=== PATIENT | female | born 1980 | race Caucasian/White ===

== ENCOUNTER → 2016-12-25 | Outpatient (CLI) | payer BC ==
--- NOTE | 2016-12-26 09:28 | MR ---
EXAMINATION: MRI of the right knee HISTORY: Pain COMPARISON: Radiographs dated 04/04/2016 TECHNIQUE: Multiplanar and multisequence images obtained of the right knee without contrast. FINDINGS: The patellar and quadriceps tendons appear intact. The ACL and the PCL appear normal. The medial and lateral menisci are normal. The medial and lateral collateral ligament complexes appear intact. There is edema within the superior lateral aspect of Hoffa's fat pad. Moderate to severe art icular cartilage thinning is noted along the inferolateral aspect of the patella and moderately with in the remaining patellofemoral compartment. Subchondral edema and cystic changes also noted within the patellofemoral compartment. The articular surfaces otherwise appear preserved. There is a trace joint fluid and a small Cortes's cyst. IMPRESSION: 1. Moderate chondromalacia patellae. 2. 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
== END ==
LOC: MW.MRI 15:40
PROVIDERS: ATTEND Physician Assistant
DX: M22.41 Chondromalacia patellae, right knee (principal)
CPT/HCPCS: 73721-26-RT; 73721-RT

== ENCOUNTER 2017-02-21 06:30 | Day surgery (SDC) | payer BC ==
[2017-02-20 16:01] LABS: CHLORIDE,CL 108 mmol/L (98-110); SODIUM,NA 140 mmol/L (136-146)
[~2017-02-21 06:30] MED LIST: Lactated Ringers 1,000 ML IV SCH; Sodium Chloride 0.9% 10 ML Syringe FLUSH PRN; Sodium Chloride 0.9% 2.5 ML Syringe FLUSH PRN; ceFAZolin 2 GM in Premix Bag 1 BAG IV ONE
--- NOTE | 2017-02-21 07:08 | PCM.PREANE ---
Preanesthetic Assessment - Anesthesia/Transfusion/Family Hx Anesthesia History: Prior Anesthesia Without Reaction Other Type of Anesthesia Reaction Comment: Denies any known problems in the past , no known family history of problems Family History of Anesthesia Reaction: No Transfusion History: No Prior Transfusion(s) Intubation History: Unknown - Review of Systems General: No Symptoms Pulmonary: No Symptoms Cardiovascular: No Symptoms Gastrointestinal: No symptoms Neurological: No Symptoms Other: Reports: None - Physical Assessment Height: 1.68 m Weight: 102.512 kg ASA Class: 2 Mental Status: Alert & Oriented x3 Airway Class: Mallampati = 2 Dentition: Reports: Normal Dentition Thyro-Mental Finger Breadths: 3 Mouth Opening Finger Breadths: 3 ROM/Head Extension: Full Lungs: Clear to auscultation, Normal respiratory effort Cardiovascular: Regular Rate, Regular Rhythm - Lab Values: Laboratory Last Values WBC 9.33 K/uL (4.0-11.0) 02/20/17 15:34 RBC 4.19 M/uL (4.30-5.90) L 02/20/17 15:34 Hgb 12.1 g/dL (12.0-16.0) 02/20/17 15:34 Hct 36.8 % (36.0-46.0) 02/20/17 15:34 MCV 87.8 fL (80.0-98.0) 02/20/17 15:34 MCH 28.9 pg (27.0-32.0) 02/20/17 15:34 MCHC 32.9 g/dL (31.0-37.0) 02/20/17 15:34 RDW Std Deviation 48.9 fl (28.0-62.0) 02/20/17 15:34 RDW Coeff of Dilia 15 % (11.0-15.0) 02/20/17 15:34 Plt Count 247 K/uL (150-400) 02/20/17 15:34 MPV 9.90 fL (7.40-12.00) 02/20/17 15:34 Nucleated RBC % 0.0 /100WBC 02/20/17 15:34 Nucleated RBCs # 0 K/uL 02/20/17 15:34 Sodium 140 mmol/L (136-146) 02/20/17 15:34 Potassium 4.2 mmol/L (3.5-5.1) 02/20/17 15:34 Chloride 108 mmol/L (98-110) 02/20/17 15:34 Carbon Dioxide 21 mmol/L (21-31) 02/20/17 15:34 BUN 11 mg/dL (6.0-23.0) 02/20/17 15:34 Creatinine 0.8 mg/dL (0.6-1.5) 02/20/17 15:34 Est Cr Clr Drug Dosing 89.26 mL/min 02/20/17 15:34 Estimated GFR (MDRD) > 60.0 ml/min 02/20/17 15:34 Glucose 80 mg/dL (60-110) 02/20/17 15:34 Calcium 8.7 mg/dL (8.8-10.8) L 02/20/17 15:34 HCG, Qual NEGATIVE (NEG) 02/20/17 15:34 Blood Type AB POSITIVE 02/20/17 15:34 Antibody Screen NEGATIVE 02/20/17 15:34 - Allergies Allergies/Adverse Reactions: Allergies Allergy/AdvReac Type Severity Reaction Status Date / Time No Known Allergies Allergy Verified 01/06/16 16:00 - Blood Blood Available: No - Anesthesia Plan Pre-Op Medication Ordered: None - Acknowledgements Anesthesia Type Planned: General Anesthesia Pt an Appropriate Candidate for the Planned Anesthesia: Yes Alternatives and Risks of Anesthesia Discussed w Pt/Guardian: Yes Pt/Guardian Understands and Agrees with Anesthesia Plan: Yes PreAnesthesia Questionnaire Cardiovascular History: Reports: Other (See Below) Other Cardiovascular History: murmur in the past Gastrointestinal History: Reports: GERD Genitourinary History: Reports: None CUSHION SEWER History: Reports: Dysfunctional Uterine Bleeding, Musculoskeletal History: Reports: None Psychiatric History: Reports: Anxiety, Depression Endocrine/Metabolic History: Reports: Obesity/BMI 30+ - Past Surgical History Head Surgeries/Procedures: Reports: None GI Surgical History: Reports: Cholecystectomy Female Surgical History: Reports: Other (See Below) Other Female Surgeries/Procedures: hx hysteroscopy and diagnostic laparoscopy Musculoskeletal Surgical History: Reports: Other (See Below) Other Musculoskeletal Surgeries/Procedures:: hx ganglion cyst removed from lt foot - SUBSTANCE USE Smoking Status *Q: Current Every Day Smoker (< 1ppd) Tobacco Use Within Last Twelve Months: Cigarettes Recreational Drug Use History: No - HOME MEDS Home Medications: Home Meds Citalopram [Citalopram HBr] 10 mg PO DAILY 09/07/14 [History] LORazepam [Ativan] 1 tab PO ASDIRECTED PRN 02/18/17 [History] Omeprazole 20 mg PO DAILY 02/18/17 [History] - CURRENT (IN HOUSE) MEDS Current Meds: Current Medications Lactated Ringer's (Ringers, Lactated) 1,000 mls @ 125 mls/hr IV ASDIRECTED MARQUIS Last Admin: 02/21/17 06:55 Dose: 125 mls/hr Sodium Chloride (Saline Flush) 10 ml FLUSH ASDIRECTED PRN PRN Reason: Keep Vein Open Sodium Chloride (Saline Flush) 2.5 ml FLUSH ASDIRECTED PRN PRN Reason: Keep Vein Open Discontinued Medications Cefazolin Sodium/Dextrose 2 gm (/ Premix) 50 mls @ 100 mls/hr IV ONETIME ONE Stop: 02/20/17 15:41
[2017-02-21] MEDS ORDERED: Rocuronium 10 MG/ML 10 ML Syringe ONE (07:16)
[2017-02-21] MEDS ORDERED: Midazolam 1 MG/ML 2 ML SDV ONE (07:16)
[2017-02-21] MEDS ORDERED: fentaNYL 250 MCG/5 ML SDV ONE (07:16)
[2017-02-21] MEDS ORDERED: HYDROmorphone 2 MG/ML Syringe ONE (07:16)
[2017-02-21] MEDS ORDERED: Ondansetron 4 MG/2 ML SDV ONE (07:16)
[2017-02-21] MEDS ORDERED: Dexamethasone 4 MG/ML 5 ML MDV ONE (07:16)
[2017-02-21] MEDS ORDERED: Propofol 200 MG/20 ML SDV ONE (07:16)
[2017-02-21] MEDS ORDERED: Fluorescein 5 ML Vial ONE (07:16)
[2017-02-21] MEDS ORDERED: Lidocaine 2% 5 ML SDV ONE (07:19)
[2017-02-21] MEDS ORDERED: Furosemide 40 MG/4 ML VIAL ONE (08:22)
[2017-02-21] MEDS ORDERED: fentaNYL 100 MCG/2 ML SDV ONE (08:54)
[2017-02-21] MEDS ORDERED: Mineral Oil/Petrolatum Ophth Oint 3.5 GM Tube ONE (09:06)
[2017-02-21] MEDS ORDERED: Ondansetron 4 MG/2 ML SDV IVPUSH PRN (09:11)
[2017-02-21] MEDS ORDERED: Promethazine 25 MG/ML SDV IM PRN (09:11)
[2017-02-21] MEDS ORDERED: Morphine 4 MG/ML Syringe IVPUSH PRN (09:11)
[2017-02-21] MEDS ORDERED: Ketorolac 30 MG/ML SDV IVPUSH PRN (09:11)
[2017-02-21] MEDS ORDERED: Acetaminophen/oxyCODONE 325-5 MG Tab PO PRN (09:11)
[2017-02-21] MEDS ORDERED: Ketorolac 30 MG/ML SDV IVPUSH ONE (09:11)
--- NOTE | 2017-02-21 09:16 | PCM.OPNOTE ---
- General Post-Op/Procedure Note Date of Surgery/Procedure: 02/21/17 Operative Procedure(s): TVH, Bilatral Salpengectomy and cystoscopy Pre Op Diagnosis: Vaginal bleeding Post-Op Diagnosis: Same Anesthesia Technique: General ET tube Primary Surgeon: Saurav Matos Storekeeper Steward: Rama Taylor EBL in mLs: 100 Complications: None Condition: Good Free Text/Narrative:: Intake & Output 02/20/17 02/21/17 02/21/17 22:59 06:59 14:59 Output Total 30 Balance -30
[2017-02-21] MEDS ORDERED: Promethazine 12.5 MG Supp RECTAL PRN (09:53)
[2017-02-21] MEDS ORDERED: fentaNYL 100 MCG/2 ML SDV IVPUSH PRN (09:53)
--- NOTE | 2017-02-21 10:01 | PCM.POSTAN ---
POST ANESTHESIA ASSESSMENT - MENTAL STATUS Mental Status: alert, oriented - RESPIRATORY Respiratory Status: respiratory rate WNL, airway patent, O2 saturation stable - CARDIOVASCULAR CV Status: pulse rate WNL, blood pressure stable - GASTROINTESTINAL GI Status: no symptoms - PAIN Pain Score: 5 - POST OP HYDRATION Hydration Status: adequate & stable - OBSERVATIONS Free Text/Narrative:: no anesthesia problems
[2017-02-21] MEDS: Acetaminophen/oxyCODONE 325-5 MG Tab PO PRN ×3 (10:25→22:15)
[2017-02-21] MEDS: Morphine 2 MG/ML Syringe IVPUSH PRN ×3 (11:13→18:49)
--- NOTE | 2017-02-21 13:16 | OR ---
SURGEON: Saurav Matos MD DATE OF PROCEDURE: PREOPERATIVE DIAGNOSIS: Menometrorrhagia. POSTOPERATIVE DIAGNOSIS: Menometrorrhagia. OPERATION PERFORMED: Total vaginal hysterectomy, vaginal bilateral salpingectomy preserving both ovaries and cystoscopy. RETAIL VISUAL MERCHANDISER: RYAN Kirby ANESTHESIA: General endotracheal intubation, Alexandra Lawrence and Dr. Lambert. ESTIMATED BLOOD LOSS: 100 mL. COMPLICATIONS: None. FINDINGS: Uterus about 8-9 weeks. Both ovaries are essentially normal. INDICATIONS FOR SURGERY: Marion refer to the admit note. PROCEDURE IN DETAIL: The patient was brought to the OR, properly identified, and after adequate level of general anesthesia, the patient was placed in lithotomy position. Prepped and draped in sterile fashion as usual. Straight catheter was used to empty the bladder and a short weighted speculum was placed in the vagina. Single-tooth tenaculum was applied to the cervix and using electrocautery, circular incision in the vaginal mucosa was done and the posterior cul-de-sac was entered posteriorly using Mayes scissors. The perineum and the vagina tagged posteriorly with 2-0 Vicryl and held it for further identification. A short weighted speculum replaced with an extending long weighted speculum. The uterosacral ligament was identified from both sides, clamped with a curved Zeppelin, transected, and suture ligated with 2-0 Vicryl pop-off and held for further identification. The same thing was done with the cardinal ligament. Then, using Metzenbaum scissors, the cervicovesical space was entered anteriorly and the bladder retracted completely away from the operative field. The anterior cul-de-sac was entered anteriorly and broad ligament was clamped with a curved Zeppelin, transected, and suture ligated with 2-0 Vicryl pop-off. The uterine vessel suture ligated at this time. Multiple bites taken in the broad ligament on both sides. We shortened the superior pedicles and one of those bites suture ligated the round ligament. Then, the uterus delivered posteriorly and the superior pedicle clamped with a 90-degree Zeppelin on both sides and transected and uterus was removed. The superior pedicle tied two times with 2-0 free tie on both sides and then attention was paid to the tubes and using the Harmonic scapula, the salpingectomy was performed by using the Harmonic coagulating the mesosalpinx. Inspection of the operative field showed at this time no oozing and no bleeding. The uterosacral ligament anchored to the vagina at 3 and 9 o'clock for added vaginal support and then the vaginal cuff was closed with 2-0 Vicryl interrupted [id number] sutures. While we were doing that, we asked the anesthesia people to give the patient fluorescein and after closing the vaginal cuff, cystoscopy was performed. The bladder was intact. Both ureteric orifices were seen with the dye coming from both of them. Thus, the patency of both ureters verified. Satisfied with these findings, instrument and hardware were retrieved from the abdomen and vagina and instrument and sponge count was correct x2. The procedure was ended at this time. The patient tolerated the procedure well, went to recovery room in stable general condition. CARMELITA / SOHAN /[id number]
[2017-02-21] MEDS: Nicotine 21 MG/24 Hr Patch TRDERM SCH (15:38)
[2017-02-22] MEDS: Acetaminophen/oxyCODONE 325-5 MG Tab PO PRN ×2 (03:37→09:18)
[2017-02-22 04:48] LABS: CHLORIDE,CL 108 mmol/L (98-110); SODIUM,NA 140 mmol/L (136-146)
[2017-02-22 07:45] VITALS: BP 117/67
[2017-02-22] MEDS: Nicotine 21 MG/24 Hr Patch TRDERM SCH (08:51)
--- NOTE | 2017-02-22 09:18 | PCM.SURGPN ---
- General Info Date of Service: 02/22/17 POD#: 1 Functional Status: Reports: pain controlled - Review of Systems General: Reports: No Symptoms HEENT: Reports: no symptoms Pulmonary: Reports: no symptoms Cardiovascular: Reports: No Symptoms Gastrointestinal: Reports: No symptoms Genitourinary: Reports: no symptoms Musculoskeletal: Reports: no symptoms Skin: Reports: no symptoms Neurological: Reports: No Symptoms Psychiatric: Reports: no symptoms - Patient Data Vitals - most recent: Last Vital Signs Temp 36.4 C 02/22/17 07:43 Pulse 60 02/22/17 07:43 Resp 16 02/22/17 07:43 BP 117/67 02/22/17 07:43 Pulse Ox 95 02/22/17 07:43 Weight - most recent: 102 kg I&O - last 24 hours: Intake & Output 02/21/17 02/22/17 02/22/17 22:59 06:59 14:59 Intake Total 2245 2400 Output Total 770 4150 Balance 1475 -1750 Lab Results last 24 hrs: Laboratory Results - last 24 hr 02/22/17 02/22/17 Range/Units 03:53 03:53 WBC 15.02 H (4.0-11.0) K/uL RBC 3.63 L (4.30-5.90) M/uL Hgb 10.5 L (12.0-16.0) g/dL Hct 32.3 L (36.0-46.0) % MCV 89.0 (80.0-98.0) fL MCH 28.9 (27.0-32.0) pg MCHC 32.5 (31.0-37.0) g/dL RDW Std Deviation 49.2 (28.0-62.0) fl RDW Coeff of Dilia 15 (11.0-15.0) % Plt Count 255 (150-400) K/uL MPV 10.40 (7.40-12.00) fL Neut % (Auto) 79.0 (48.0-80.0) % Lymph % (Auto) 11.7 L (16.0-40.0) % Winn % (Auto) 9.1 (0.0-15.0) % Eos % (Auto) 0.1 (0.0-7.0) % Baso % (Auto) 0.1 (0.0-1.5) % Neut # (Auto) 11.9 H (1.4-5.7) K/uL Lymph # (Auto) 1.8 (0.6-2.4) K/uL Winn # (Auto) 1.4 H (0.0-0.8) K/uL Eos # (Auto) 0.0 (0.0-0.7) K/uL Baso # (Auto) 0.0 (0.0-0.1) K/uL Nucleated RBC % 0.0 /100WBC Nucleated RBCs # 0 K/uL Sodium 140 (136-146) mmol/L Potassium 4.3 (3.5-5.1) mmol/L Chloride 108 (98-110) mmol/L Carbon Dioxide 21 (21-31) mmol/L BUN 9 (6.0-23.0) mg/dL Creatinine 0.8 (0.6-1.5) mg/dL Est Cr Clr Drug Dosing 89.75 mL/min Estimated GFR (MDRD) > 60.0 ml/min Glucose 124 H (60-110) mg/dL Calcium 8.6 L (8.8-10.8) mg/dL Med Orders - Current: Current Medications Fentanyl (Sublimaze) 50 mcg IVPUSH SEECOMMENT PRN PRN Reason: Pain (moderate 4-6) Ketorolac Tromethamine (Toradol) 30 mg IVPUSH Q6H PRN PRN Reason: Pain (severe 7-10) Stop: 02/26/17 09:11 Last Admin: 02/21/17 15:43 Dose: 30 mg Morphine Sulfate (Morphine) 2 mg IVPUSH Q2H PRN PRN Reason: Pain (severe 7-10) Last Admin: 02/21/17 18:49 Dose: 2 mg Morphine Sulfate (Morphine) 4 mg IVPUSH Q2H PRN PRN Reason: Pain (severe 7-10) Last Admin: 02/21/17 14:21 Dose: 4 mg Nicotine (Habitrol) 21 mg TRDERM DAILY MARQUIS Last Admin: 02/22/17 08:51 Dose: Not Given Ondansetron HCl (Zofran) 4 mg IVPUSH Q6H PRN PRN Reason: Nausea/Vomiting Oxycodone/Acetaminophen (Percocet 325-5 Mg) 1 tab PO Q4H PRN PRN Reason: Pain (moderate 4-6) Oxycodone/Acetaminophen (Percocet 325-5 Mg) 2 tab PO Q4H PRN PRN Reason: Pain (moderate 4-6) Last Admin: 02/22/17 03:37 Dose: 2 tab Promethazine HCl (Phenergan) 25 mg IM Q6H PRN PRN Reason: Nausea/Vomiting Promethazine HCl (Phenadoz) 12.5 - 25 mg RECTAL ASDIRECTED PRN PRN Reason: Nausea/Vomiting Sodium Chloride (Saline Flush) 10 ml FLUSH ASDIRECTED PRN PRN Reason: Keep Vein Open Sodium Chloride (Saline Flush) 2.5 ml FLUSH ASDIRECTED PRN PRN Reason: Keep Vein Open Discontinued Medications Dexamethasone (Dexamethasone) Confirm Administered Dose 20 mg .ROUTE .STK-MED ONE Stop: 02/21/17 07:17 Fentanyl (Sublimaze) Confirm Administered Dose 250 mcg .ROUTE .STK-MED ONE Stop: 02/21/17 07:17 Fentanyl (Sublimaze) Confirm Administered Dose 100 mcg .ROUTE .STK-MED ONE Stop: 02/21/17 08:55 Fluorescein Sodium (Ak-Fluor) Confirm Administered Dose 5 ml .ROUTE .STK-MED ONE Stop: 02/21/17 07:17 Furosemide (Lasix) Confirm Administered Dose 40 mg .ROUTE .STK-MED ONE Stop: 02/21/17 08:23 Glycopyrrolate () Confirm Administered Dose 1 mg .ROUTE .STK-MED ONE Stop: 02/21/17 08:56 Hydromorphone HCl (Dilaudid) Confirm Administered Dose 2 mg .ROUTE .STK-MED ONE Stop: 02/21/17 07:17 Lactated Ringer's (Ringers, Lactated) 1,000 mls @ 125 mls/hr IV ASDIRECTED MARQUIS Last Admin: 02/21/17 06:55 Dose: 125 mls/hr Cefazolin Sodium/Dextrose 2 gm (/ Premix) 50 mls @ 100 mls/hr IV ONETIME ONE Stop: 02/20/17 15:41 Last Admin: 02/21/17 11:17 Dose: Not Given Ketorolac Tromethamine (Toradol) 30 mg IVPUSH ONETIME ONE Stop: 02/21/17 09:12 Last Admin: 02/21/17 11:17 Dose: Not Given Lidocaine (Xylocaine-Mpf 2%) Confirm Administered Dose 5 ml .ROUTE .STK-MED ONE Stop: 02/21/17 07:20 Midazolam HCl (Versed 1 Mg/Ml) Confirm Administered Dose 2 mg .ROUTE .STK-MED ONE Stop: 02/21/17 07:17 Mineral Oil/White Petrolatum (Lacri-Lube S.O.P Oint) Confirm Administered Dose 3.5 gm .ROUTE .STK-MED ONE Stop: 02/21/17 09:07 Ondansetron HCl (Zofran) Confirm Administered Dose 4 mg .ROUTE .STK-MED ONE Stop: 02/21/17 07:17 Propofol (Diprivan 20 Ml) Confirm Administered Dose 200 mg .ROUTE .STK-MED ONE Stop: 02/21/17 07:17 Rocuronium [place] (Zemuron) Confirm Administered Dose 100 mg .ROUTE .STK-MED ONE Stop: 02/21/17 07:17 - Exam Wound/Incisions: healing well General: alert, oriented HEENT: Pupils equal Neck: supple Lungs: Clear to auscultation, Normal respiratory effort Cardiovascular: Regular Rate, Regular Rhythm Abdomen: bowel sounds present, soft, no tenderness, no distension Extremities: no edema Skin: warm, dry, intact Neurological: no new focal deficit Psy/Mental Status: alert, normal affect, normal mood - Problem List Review Problem List Initiated/Reviewed/Updated: Yes - My Orders Last 24 Hours: Active Orders 24 hr Category Date Time Status Patient Status [ADT] Routine ADT 02/21/17 09:11 Active Antiembolic Devices [RC] PER UNIT ROUTINE Care 02/21/17 09:12 Active Notify Provider Vital Signs [RC] ASDIRECTED Care 02/21/17 09:11 Active RT Incentive Spirometry [RC] Q2HWA Care 02/21/17 09:11 Active Up With Assistance [RC] PER UNIT ROUTINE Care 02/21/17 09:11 Active Up ad Brianna [RC] PER UNIT ROUTINE Care 02/21/17 09:11 Active Urinary Catheter Removal [RC] Per Unit Routine Care 02/21/17 09:11 Active Vital Signs [RC] PER UNIT ROUTINE Care 02/21/17 09:11 Active Regular Diet [DIET] Diet 02/21/17 Lunch Active Acetaminophen/oxyCODONE [Percocet 325-5 MG] Med 02/21/17 09:11 Active 1 tab PO Q4H PRN Acetaminophen/oxyCODONE [Percocet 325-5 MG] Med 02/21/17 09:11 Active 2 tab PO Q4H PRN Ketorolac [Toradol] Med 02/21/17 09:11 Active 30 mg IVPUSH Q6H PRN Morphine Med 02/21/17 09:11 Active 2 mg IVPUSH Q2H PRN Morphine Med 02/21/17 09:11 Active 4 mg IVPUSH Q2H PRN Nicotine [Habitrol] Med 02/21/17 15:15 Active 21 mg TRDERM DAILY Ondansetron [Zofran] Med 02/21/17 09:11 Active 4 mg IVPUSH Q6H PRN Promethazine [Phenadoz] Med 02/21/17 09:53 Active 12.5 - 25 mg RECTAL ASDIRECTED PRN Promethazine [Phenergan] Med 02/21/17 09:11 Active 25 mg IM Q6H PRN fentaNYL [Sublimaze] Med 02/21/17 09:53 Active 50 mcg IVPUSH SEECOMMENT PRN Peripheral IV Discontinue [OM.PC] Routine Oth 02/21/17 09:11 Ordered Sequential Compression Device [OM.PC] Per Unit Routine Oth 02/21/17 09:11 Ordered Resuscitation Status Routine Resus Stat 02/21/17 09:11 Ordered Medication Orders Fentanyl (Sublimaze) 50 mcg IVPUSH SEECOMMENT PRN PRN Reason: Pain (moderate 4-6) Ketorolac Tromethamine (Toradol) 30 mg IVPUSH Q6H PRN PRN Reason: Pain (severe 7-10) Stop: 02/26/17 09:11 Last Admin: 02/21/17 15:43 Dose: 30 mg Morphine Sulfate (Morphine) 2 mg IVPUSH Q2H PRN PRN Reason: Pain (severe 7-10) Last Admin: 02/21/17 18:49 Dose: 2 mg Admin: 02/21/17 12:12 Dose: 2 mg Admin: 02/21/17 11:13 Dose: 2 mg Morphine Sulfate (Morphine) 4 mg IVPUSH Q2H PRN PRN Reason: Pain (severe 7-10) Last Admin: 02/21/17 14:21 Dose: 4 mg Nicotine (Habitrol) 21 mg TRDERM DAILY MARQUIS Last Admin: 02/22/17 08:51 Dose: Not Given Admin: 02/21/17 15:38 Dose: 21 mg Ondansetron HCl (Zofran) 4 mg IVPUSH Q6H PRN PRN Reason: Nausea/Vomiting Oxycodone/Acetaminophen (Percocet 325-5 Mg) 1 tab PO Q4H PRN PRN Reason: Pain (moderate 4-6) Oxycodone/Acetaminophen (Percocet 325-5 Mg) 2 tab PO Q4H PRN PRN Reason: Pain (moderate 4-6) Last Admin: 02/22/17 03:37 Dose: 2 tab Admin: 02/21/17 22:15 Dose: 2 tab Admin: 02/21/17 16:40 Dose: 2 tab Admin: 02/21/17 10:25 Dose: 2 tab Promethazine HCl (Phenergan) 25 mg IM Q6H PRN PRN Reason: Nausea/Vomiting Promethazine HCl (Phenadoz) 12.5 - 25 mg RECTAL ASDIRECTED PRN PRN Reason: Nausea/Vomiting Sodium Chloride (Saline Flush) 10 ml FLUSH ASDIRECTED PRN PRN Reason: Keep Vein Open Sodium Chloride (Saline Flush) 2.5 ml FLUSH ASDIRECTED PRN PRN Reason: Keep Vein Open - Assessment Assessment (Free Text/Narrative):: Status post total vaginal hysterectomy postoperative day #1 patient is doing well on regular diet no vaginal bleeding her lab work is normal she is afebrile. - Plan Plan (Free Text/Narrative):: Patient would be sent home today post hysterectomy instruction is given to the patient prescription for Percocet 7.5/325 start every 4 hours and when necessary for pain is given to the patient she is to have an appointment to the office one week the day of her discharge for postoperative check
--- NOTE | 2017-02-22 09:19 | PCM.DCSUM1 ---
Discharge Summary - Discharge Data Discharge Date: 02/22/17 Discharge Disposition: Home, Self-Care 01 Condition: Good - Patient Summary/Data Operative Procedure(s) Performed: TV[facility], Bilatral Salpengectomy and cystoscopy - Patient Instructions Diet: Usual Diet as Tolerated Driving: Do Not Drive Showering/Bathing: January Shower Notify Provider of: Fever, Increased Pain - Discharge Plan Home Medications: Home Meds Citalopram [Citalopram HBr] 10 mg PO DAILY 09/07/14 [History] LORazepam [Ativan] 1 tab PO ASDIRECTED PRN 02/18/17 [History] Omeprazole 20 mg PO DAILY 02/18/17 [History] Referrals: Saurav Matos MD [Physician] - 03/01/17 9:30 am - General Info Date of Service: 02/22/17 Functional Status: Reports: pain controlled - Review of Systems General: Reports: No Symptoms HEENT: Reports: no symptoms Pulmonary: Reports: no symptoms Cardiovascular: Reports: No Symptoms Gastrointestinal: Reports: No symptoms Genitourinary: Reports: no symptoms Musculoskeletal: Reports: no symptoms Skin: Reports: no symptoms Neurological: Reports: No Symptoms Psychiatric: Reports: no symptoms - Patient Data Vitals - Most Recent: Last Vital Signs Temp 36.4 C 02/22/17 07:43 Pulse 60 02/22/17 07:43 Resp 16 02/22/17 07:43 BP 117/67 02/22/17 07:43 Pulse Ox 95 02/22/17 07:43 Weight - Most Recent: 102 kg I&O - Last 24 hours: Intake & Output 02/21/17 02/22/17 02/22/17 22:59 06:59 14:59 Intake Total 2245 2400 Output Total 770 4150 Balance 1475 -1750 Lab Results - Last 24 hrs: Laboratory Results - last 24 hr 02/22/17 02/22/17 Range/Units 03:53 03:53 WBC 15.02 H (4.0-11.0) K/uL RBC 3.63 L (4.30-5.90) M/uL Hgb 10.5 L (12.0-16.0) g/dL Hct 32.3 L (36.0-46.0) % MCV 89.0 (80.0-98.0) fL MCH 28.9 (27.0-32.0) pg MCHC 32.5 (31.0-37.0) g/dL RDW Std Deviation 49.2 (28.0-62.0) fl RDW Coeff of Dilia 15 (11.0-15.0) % Plt Count 255 (150-400) K/uL MPV 10.40 (7.40-12.00) fL Neut % (Auto) 79.0 (48.0-80.0) % Lymph % (Auto) 11.7 L (16.0-40.0) % [place] % (Auto) 9.1 (0.0-15.0) % Eos % (Auto) 0.1 (0.0-7.0) % Baso % (Auto) 0.1 (0.0-1.5) % Neut # (Auto) 11.9 H (1.4-5.7) K/uL Lymph # (Auto) 1.8 (0.6-2.4) K/uL [place] # (Auto) 1.4 H (0.0-0.8) K/uL Eos # (Auto) 0.0 (0.0-0.7) K/uL Baso # (Auto) 0.0 (0.0-0.1) K/uL Nucleated RBC % 0.0 /100WBC Nucleated RBCs # 0 K/uL Sodium 140 (136-146) mmol/L Potassium 4.3 (3.5-5.1) mmol/L Chloride 108 (98-110) mmol/L Carbon Dioxide 21 (21-31) mmol/L BUN 9 (6.0-23.0) mg/dL Creatinine 0.8 (0.6-1.5) mg/dL Est Cr Clr Drug Dosing 89.75 mL/min Estimated GFR (MDRD) > 60.0 ml/min Glucose 124 H (60-110) mg/dL Calcium 8.6 L (8.8-10.8) mg/dL Med Orders - Current: Current Medications Fentanyl (Sublimaze) 50 mcg IVPUSH SEECOMMENT PRN PRN Reason: Pain (moderate 4-6) Ketorolac Tromethamine (Toradol) 30 mg IVPUSH Q6H PRN PRN Reason: Pain (severe 7-10) Stop: 02/26/17 09:11 Last Admin: 02/21/17 15:43 Dose: 30 mg Morphine Sulfate (Morphine) 2 mg IVPUSH Q2H PRN PRN Reason: Pain (severe 7-10) Last Admin: 02/21/17 18:49 Dose: 2 mg Morphine Sulfate (Morphine) 4 mg IVPUSH Q2H PRN PRN Reason: Pain (severe 7-10) Last Admin: 02/21/17 14:21 Dose: 4 mg Nicotine (Habitrol) 21 mg TRDERM DAILY MARQUIS Last Admin: 02/22/17 08:51 Dose: Not Given Ondansetron HCl (Zofran) 4 mg IVPUSH Q6H PRN PRN Reason: Nausea/Vomiting Oxycodone/Acetaminophen (Percocet 325-5 Mg) 1 tab PO Q4H PRN PRN Reason: Pain (moderate 4-6) Oxycodone/Acetaminophen (Percocet 325-5 Mg) 2 tab PO Q4H PRN PRN Reason: Pain (moderate 4-6) Last Admin: 02/22/17 03:37 Dose: 2 tab Promethazine HCl (Phenergan) 25 mg IM Q6H PRN PRN Reason: Nausea/Vomiting Promethazine HCl (Phenadoz) 12.5 - 25 mg RECTAL ASDIRECTED PRN PRN Reason: Nausea/Vomiting Sodium Chloride (Saline Flush) 10 ml FLUSH ASDIRECTED PRN PRN Reason: Keep Vein Open Sodium Chloride (Saline Flush) 2.5 ml FLUSH ASDIRECTED PRN PRN Reason: Keep Vein Open Discontinued Medications Dexamethasone (Dexamethasone) Confirm Administered Dose 20 mg .ROUTE .STK-MED ONE Stop: 02/21/17 07:17 Fentanyl (Sublimaze) Confirm Administered Dose 250 mcg .ROUTE .STK-MED ONE Stop: 02/21/17 07:17 Fentanyl (Sublimaze) Confirm Administered Dose 100 mcg .ROUTE .STK-MED ONE Stop: 02/21/17 08:55 Fluorescein Sodium (Ak-Fluor) Confirm Administered Dose 5 ml .ROUTE .STK-MED ONE Stop: 02/21/17 07:17 Furosemide (Lasix) Confirm Administered Dose 40 mg .ROUTE .STK-MED ONE Stop: 02/21/17 08:23 Glycopyrrolate () Confirm Administered Dose 1 mg .ROUTE .STK-MED ONE Stop: 02/21/17 08:56 Hydromorphone HCl (Dilaudid) Confirm Administered Dose 2 mg .ROUTE .STK-MED ONE Stop: 02/21/17 07:17 Lactated Ringer's (Ringers, Lactated) 1,000 mls @ 125 mls/hr IV ASDIRECTED MARQUIS Last Admin: 02/21/17 06:55 Dose: 125 mls/hr Cefazolin Sodium/Dextrose 2 gm (/ Premix) 50 mls @ 100 mls/hr IV ONETIME ONE Stop: 02/20/17 15:41 Last Admin: 02/21/17 11:17 Dose: Not Given Ketorolac Tromethamine (Toradol) 30 mg IVPUSH ONETIME ONE Stop: 02/21/17 09:12 Last Admin: 02/21/17 11:17 Dose: Not Given Lidocaine (Xylocaine-Mpf 2%) Confirm Administered Dose 5 ml .ROUTE .STK-MED ONE Stop: 02/21/17 07:20 Midazolam HCl (Versed 1 Mg/Ml) Confirm Administered Dose 2 mg .ROUTE .STK-MED ONE Stop: 02/21/17 07:17 Mineral Oil/White Petrolatum (Lacri-Lube S.O.P Oint) Confirm Administered Dose 3.5 gm .ROUTE .STK-MED ONE Stop: 02/21/17 09:07 Ondansetron HCl (Zofran) Confirm Administered Dose 4 mg .ROUTE .STK-MED ONE Stop: 02/21/17 07:17 Propofol (Diprivan 20 Ml) Confirm Administered Dose 200 mg .ROUTE .STK-MED ONE Stop: 02/21/17 07:17 Rocuronium [place] (Zemuron) Confirm Administered Dose 100 mg .ROUTE .STK-MED ONE Stop: 02/21/17 07:17 - Exam General: Reports: alert, oriented HEENT: Reports: Pupils equal, Pupils reactive, EOMI, Mucous membr. moist/pink Neck: Reports: supple Lungs: Reports: Clear to auscultation, Normal respiratory effort Cardiovascular: Reports: Regular Rate, Regular Rhythm Abdomen: Reports: bowel sounds present, soft, no tenderness, no distension (Female) Exam: Normal External Exam, Normal Speculum Exam, Normal Bimanual Exam Rectal (Female) Exam: Normal Exam, Normal Rectal Tone Back Exam: Reports: Normal Inspection, Full Range of Motion Extremities: Reports: no edema, normal pulses Skin: Reports: warm, dry, intact Wound/Incisions: Reports: healing well Neurological: Reports: no new focal deficit Psy/Mental Status: Reports: alert, normal affect, normal mood *Q Meaningful Use (DIS) - VTE *Q VTE Criteria *Q: - Stroke *Q Stroke Criteria *Q: - AMI *Q AMI Criteria *Q:
--- NOTE | 2017-02-22 13:39 | PCM48HPAN ---
Post Anesthesia Note - EVALUATION WITHIN 48HRS OF ANESTHETIC Vital Signs in Normal Range: Yes Patient Participated in Evaluation: Yes Respiratory Function Stable: Yes Airway Patent: Yes Cardiovascular Function Stable: Yes Hydration Status Stable: Yes Pain Control Satisfactory: Yes Nausea and Vomiting Control Satisfactory: Yes Mental Status Recovered: Yes
== END 2017-02-22 10:20 | disposition home or self-care (01) ==
LOC: MW.SDS 06:30 → MW.MS 10:25 → MW.SDS 02-22 10:20
PROVIDERS: ATTEND Obstetrics & Gynecology
PROC: 0UT97ZZ Resection of Uterus, Via Natural or Artificial Opening (ICD-10-PCS; principal; 2017-02-21)
PROC: 0UTC7ZZ Resection of Cervix, Via Natural or Artificial Opening (ICD-10-PCS; 2017-02-21)
PROC: 0UT77ZZ Resection of Bilateral Fallopian Tubes, Via Natural or Artificial Opening (ICD-10-PCS; 2017-02-21)
DX: N80.0 Endometriosis of uterus (principal); N87.9 Dysplasia of cervix uteri, unspecified; N83.8 Other noninflammatory disorders of ovary, fallopian tube and broad ligament; N83.00 Follicular cyst of ovary, unspecified side; F41.9 Anxiety disorder, unspecified; F32.9 Major depressive disorder, single episode, unspecified; M54.2 Cervicalgia; G89.29 Other chronic pain; F17.210 Nicotine dependence, cigarettes, uncomplicated; K21.9 Gastro-esophageal reflux disease without esophagitis; E66.9 Obesity, unspecified; Z79.899 Other long term (current) drug therapy; Z98.890 Other specified postprocedural states; Z90.49 Acquired absence of other specified parts of digestive tract; Z68.36 Body mass index [BMI] 36.0-36.9, adult
CPT/HCPCS: 36415; 58262; 80048; 84703; 85025; 85027; 86850; 86900; 86901; 88307; A9270; J0690; J1100; J1170; J1885; J1940; J2250; J2270; J2405; J3010; J7120; 00944; J2704